=== PATIENT | female | born 1985 | race Caucasian/White ===

== ENCOUNTER 2023-12-21 09:06 | Emergency (ER) | payer OTHER, SELFPAY ==
[2023-12-21 09:11] VITALS: BP 114/82
[2023-12-21 09:31] LABS: % Basophils 0.8 % (0-2); % Eosinophils 1.2 % (0-6); % Immature Granulocytes 0.2 % (0-0.5); % Lymphocytes 38.8 % (20.5-51.1); Absolute Eosinophils 0.1 10^3/uL (0-0.7); Absolute Monocytes 0.6 10^3/uL (0.1-0.6); Absolute Neutrophils 2.5 10^3/uL (1.4-6.5); Hematocrit 40.4 % (37.0-47.0); Hemoglobin 13.6 g/dL (12.0-16.0); Mean Corp Hgb Conc. 33.7 g/dL (33.0-37.0); Mean Corpuscular Hgb 30.9 pg (27.0-31.0); Mean Corpuscular Volume 91.8 fL (81.0-99.0); Mean Platelet Volume 9.8 fL (7.4-10.4); Nucleated Red Blood Cells % 0 %; Platelet Count 350 10^3/uL (130-400); Red Cell Dist. Width 12.1 % (11.5-14.5); White Blood Cell Count 5.1 10^3/uL (4.8-10.8)
[2023-12-21 09:41] LABS: Urine Albumin Trace (Neg - Trace); Urine Bilirubin Negative (Negative); Urine Color Yellow; Urine Glucose Negative (Negative); Urine Ketone Negative (Negative); Urine Leukocyte Trace (Negative); Urine Nitrite Negative (Negative); Urine Occult Blood Negative (Negative); Urine Urobilinogen Negative (Neg - 1+)
[2023-12-21 09:43] LABS: ALT (SGPT) 16 U/L (0-35); AST (SGOT) 21 U/L (14-36); Albumin 4.3 g/dl (3.5-5.0); Alkaline Phosphatase 55 U/L (38-126); Blood Urea Nitrogen 11 mg/dl (7-17); Calcium 8.8 mg/dl (8.4-10.2); Carbon Dioxide 29 mmol/L (22-30); Chloride 106 mmol/L (98-107); Glucose 86 mg/dl (70-99); Potassium 4.1 mmol/L (3.5-5.1); Sodium 138 mmol/L (135-145); Total Bilirubin 0.6 mg/dl (0.2-1.3); Total Protein 7.4 g/dl (6.3-8.2); eGFR > 60.00
[2023-12-21 09:47] LABS: Urine Character Slightly Cloudy (Clear)
--- NOTE | 2023-12-21 09:52 | ED.GENMED ---
History of Present Illness
General
Chief Complaint: Urinary Symptoms
Source: patient
Exam Limitations: none
Time Seen by Provider: 12/21/23 09:44
Nursing documentation reviewed up to this point in time: agreed with
Travel History
Have you had any contact with someone who has COVID-19?: No
Do you have any symptoms of coronavirus? Fever > 100 degrees, chills, cough, shortness of breath, sore throat, loss of taste or smell, muscle aches, or headache?: No
History of Present Illness
History of Present Illness:
[id number]-year-old female presents to the ER complaint of UTI symptoms. She reports she has history of being prone to UTIs. In her past she was on Macrobid daily but she has not had a UTI since 2020 and has not been on the medication. She
started with symptoms of dysuria/burning with urination on Sunday and was seen by her doctor on Sunday and started on Macrobid . She continues to complain of similar symptoms of urinary frequency urgency dysuria and some low back pain. She
denies any nausea vomiting fevers.
Past History
Past History
ED Past Medical History: Asthma (Exercise-induced. Uses her inhalers as needed. Denies having to use inhalers any more than usual lately) and Other (Seasonal allergies)
Social History
Tobacco: Non-smoker
Personal: Single
Living: with family
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
Review of Systems
Review of Systems
Allergies reviewed?: Yes
All Other Systems: ROS reviewed and negative except as documented in HPI and ROS
Constitutional: Reports no symptoms; Denies fever, fatigue or chills
EENT: Reports no symptoms
ABD/GI: Reports no symptoms; Denies vomiting
: Reports dysuria and urgency
Musculoskeletal: Reports back pain
Skin: Reports no symptoms
Neurological: Reports no symptoms
Hematologic/Lymphatic: Reports no symptoms
Psychiatric: Reports no symptoms
Phy Exam
General Physical Exam
General Presentation: no apparent distress
General age: appears stated age
General Skin: warm and dry
General Habitus: normal
General Hydration: appears well hydrated
Gastrointestinal Exam
Gastrointestinal Exam: non tender and soft
Neurological Exam
Neurological Exam: alert and oriented x3
Aspen Coma Scale
Eye Opening: Spontaneous
Verbal Response: Oriented
Motor Response: Obeys Commands
GCS Total Score: 15
Musculoskeletal Exam
Musculoskeletal Exam: full ROM
Skin Exam
Skin Exam: normal color and warm/dry
Psychiatric Exam
Psychiatric Exam: normal mood/affect
Course
Orders/Labs/Results
Orders:
Orders
12/21/23 09:21
CBC/With Diff [Complete Blood Count/With Diff] Urgent
Comprehensive Metabolic Panel Urgent
HCG, Serum Qualitative Screen Urgent
Comment: ADD ON
Urinalysis Reflex To Culture Urgent
Date Specimen was Collected: 12/21/23
Time Specimen was Collected: 09:15
Urine Microscopic Reflex Cult Urgent
Urine Culture Urgent
MIO Source: U
Specimen Description:
Date Specimen was Collected: 12/21/23
Time Specimen was Collected: 09:15
12/21/23 09:34
Add On- LAB Urgent
Tests Added?: qual hcg
12/21/23 11:06
CT Abd/pel Without Iv Or Oral Urgent
Comment:
Reason For Exam: back pain/UTI s/s hx of renal colic
Abnormal Lab Results
12/21/23
09:21
Monocytes % 11.0 H %
(1.7-9.3)
Leukocyte Esterase Rfl Trace A
(Negative)
Urine RBC 3-6 A /HPF
(0-2)
Urine Bacteria (Reflex) Moderate A
(Negative)
12/21/23 09:21
12/21/23 09:21
Vital Signs
Initial and Last Documented VS:
Initial Vital Signs
Temp Pulse Resp BP Pulse Ox
98.1 F 93 16 114/82 98
12/21/23 09:11 12/21/23 09:11 12/21/23 09:11 12/21/23 09:11 12/21/23 09:11
Last Documented Vital Signs
Temp Pulse Resp BP Pulse Ox
98.1 F 84 16 116/74 98
12/21/23 09:11 12/21/23 11:10 12/21/23 11:10 12/21/23 11:10 12/21/23 11:10
Child Care Director consulted with Physician
Child Care Director consulted with physician?: Yes
Name of Physician Consulted: [email or web address]
MDM/Problems Addressed
Differential Diagnosis Includes:
not limited to : UTI pyelonephritis, less likely renal colic
MDM/Problems Addressed:
Patient is a 38-year-old female prone to UTIs recently diagnosed with a UTI on Macrobid presents with continued symptoms. Patient was having back pain however she denies any fever chills nausea vomiting. She does have a history of kidney stone.
Patient presents afebrile here with a normal white count, chemistries unremarkable with normal renal function. Urinalysis unremarkable with 6�10 white blood cells 11�15 squamous moderate bacteria. CAT scan done negative for urinary tract calculus
or dilatation bilaterally no focal abnormality of the bladder.
PT is non toxic will d/c with Pyridium with close outpatient follow-up family doctor
Chronic conditions affecting care:
frequent UTIS
*Radiology
Radiology exam reviewed: radiology read reviewed
*Pulse Oximetry
Patient hypoxic: no
*Critical Care Note
Total Time (30-74mins, 75-104mins- exclusive of procedures): Not Applicable
ED Attending Note
-
Portions of this chart may have been created with voice recognition software.� Occasional wrong word or��sound alike� substitutions may have occurred due to the inherent limitations of voice recognition software.
Discharge Plan
Departure
Patient Disposition: Home (Routine Discharge)
Date of Disposition: 12/21/23
Time of Disposition: 13:00
Patient with high blood pressure during this ER visit?: No
Condition: Fair
Covid-19: Not Applicable
Discharge Problem:
Dysuria
Instructions: Dysuria, Adult (DC)
Prescriptions:
New
phenazopyridine [Pyridium] 200 mg tablet
200 mg PO TID PRN (Reason: Pain) Qty: 6 0RF
No Action
Saundra 28 Tablet
1 tab PO DAILY
Patient Comments:
Control
Albuterol
2 puff inhalation BID PRN (Reason: sob)
Zyrtec:
PO DAILY PRN (Reason: sinus congestion)
Referrals:
Nathaly Colon CRNP [Family Provider] -
Activity Restrictions/Additional Instructions:
A prescription for Pyridium was sent to your pharmacy take as directed. In addition please continue your previously prescribed antibiotics. Stay well-hydrated. Return if any worsening of symptoms including increasing back pain fever chills
vomiting or any further concerns
Interventions
Interventions:
*Risk Screen - Suicide Last Done: 12/21/23 09:11
*General Assessment Last Done: 12/21/23 09:11
*Neglect/Abuse Screening Last Done: 12/21/23 09:11
ED- Fall Risk Assessment Last Done: 12/21/23 10:00
*ED COVID-19 Vaccine History Last Done: 12/21/23 10:00
ED-Female Genitourinary Assessment Last Done: 12/21/23 10:00
[2023-12-21 09:54] LABS: HCG, Serum Qualitative Screen Negative
[2023-12-21 10:00] VITALS: BMI 26.5
[2023-12-21 10:57] LABS: Urine Bacteria Moderate (Negative)
[2023-12-21 11:10] VITALS: BP 116/74
== END 2023-12-21 13:17 | disposition home or self-care (01) ==
LOC: EMR 09:06
PROVIDERS: EMERGENCY PHYSICIAN Emergency Medicine; FAMILY PHYSICIAN Nurse Practitioner
DX: R30.0 Dysuria (principal); Z87.440 Personal history of urinary (tract) infections; J45.909 Unspecified asthma, uncomplicated
CPT/HCPCS: 99284; 74176; 80053; 81003; 81015; 84703; 85025; 87086

== ENCOUNTER → 2024-02-22 09:23 | Outpatient (REF) | payer BC, SELFPAY | LOC: HWRAD 09:23 | PROVIDERS: ATTENDING PHYSICIAN Otolaryngology; FAMILY PHYSICIAN Nurse Practitioner | DX: J30.1 Allergic rhinitis due to pollen (principal); J32.4 Chronic pansinusitis | CPT/HCPCS: 70486 ==

== ENCOUNTER → 2024-07-04 15:01 | Outpatient (REF) | payer BC, SELFPAY | LOC: HWRAD 15:01 | PROVIDERS: ATTENDING PHYSICIAN Nurse Practitioner | DX: M25.512 Pain in left shoulder (principal) | CPT/HCPCS: 73030 ==

== ENCOUNTER → 2024-09-28 12:02 | Outpatient (REF) | payer BC, SELFPAY | LOC: MRI 3T 12:02 | PROVIDERS: ATTENDING PHYSICIAN Nurse Practitioner Adult Health | DX: M25.512 Pain in left shoulder (principal) | CPT/HCPCS: 73221 ==